=== PATIENT | female | born 1980 | race American Indian/Alaskan Native ===

== ENCOUNTER 2020-11-20 16:44 | Emergency (ER) | payer MEDICAID ==
[2020-11-20] MEDS ORDERED: Acetaminophen/HYDROcodone 325-10 MG Tab PO ONE ×2 (16:45→17:15)
--- NOTE | 2020-11-20 17:14 | CR ---
PROCEDURE INFORMATION: Exam: XR Left Ankle Exam date and time: 11/20/2020 5:00 PM Age: 40 years old Clinical indication: Other: Pain; Additional info: Left ankle injury. TECHNIQUE: Imaging protocol: XR Left ankle. Views: 3 or more views. COMPARISON: No relevant prior studies available. FINDINGS: Bones/joints: An obliquely oriented fracture of the distal fibula is identified. The tibia appears to be intact. No additional fractures are present. Ankle mortise is intact. Soft tissues: Normal. IMPRESSION: Obliquely oriented distal fibular fracture compatible with a Lehman type A injury.
[2020-11-20] MEDS ORDERED: Acetaminophen/HYDROcodone 325-10 MG Tab ONE (17:28)
--- NOTE | 2020-11-20 17:32 | EDM.PDOC ---
Scribed by Jaleesa Keyes 11/20/20 1730 for Burke Becerra MD ED HPI GENERAL MEDICAL PROBLEM - General Chief Complaint: Lower Extremity Injury/Pain Stated Complaint: slipped down some stepps on ice left ankle Time Seen by Provider: 11/20/20 16:52 Source of Information: Reports: Patient, RN, RN Notes Reviewed History Limitations: Reports: No Limitations - History of Present Illness INITIAL COMMENTS - FREE TEXT/NARRATIVE: Patient presents to ED by POV stating that 3 days ago she was at her sister's and missed a step injuring her left ankle. The pain is constant 7/10 sharp and most prominent on the lateral ankle. She has been walking on it. No other injuries. Denies loc, meds, allergies, drugs, etoh. Onset: Other (3 days ago) Onset Date: 11/17/20 Duration: Day(s):, Getting Worse Location: Reports: Lower Extremity, Left Quality: Reports: Ache, Sharp Improves with: Reports: None Worsens with: Reports: None Associated Symptoms: Reports: No Other Symptoms - Related Data Allergies Allergy/AdvReac Type Severity Reaction Status Date / Time No Known Allergies Allergy Verified 03/04/16 01:35 Home Meds: Home Meds Ibuprofen 800 mg PO Q6HR PRN 03/10/14 [History] SUMAtriptan [Imitrex] 1 tab PO ASDIRECTED PRN 12/08/14 [History] Meloxicam 7.5 mg PO BID 12/25/15 [History] Past Medical History HEENT History: Reports: Impaired Vision, Other (See Below) Other HEENT History: wears glasses Cardiovascular History: Reports: None Respiratory History: Reports: None Gastrointestinal History: Reports: None Genitourinary History: Reports: None [employer] INSPECTOR History: Reports: None Neurological History: Reports: None Psychiatric History: Reports: None Endocrine/Metabolic History: Reports: None Hematologic History: Reports: None Immunologic History: Reports: None Oncologic (Cancer) History: Reports: None Dermatologic History: Reports: None - Past Surgical History Female Surgical History: Reports: Tubal Ligation Musculoskeletal Surgical History: Reports: Other (See Below) Social & Family History - Family History Family Medical History: No Pertinent Family History - Living Situation & Occupation Living situation: Reports: with Family Occupation: Employed Review of Systems - Review of Systems Review Of Systems: Comprehensive ROS is negative, except as noted in HPI. ED EXAM, GENERAL - Physical Exam Exam: See Below Exam Limited By: No Limitations General Appearance: Alert, WD/WN, No Apparent Distress Head: Atraumatic, Normocephalic Neck: Normal Inspection Respiratory/Chest: No Respiratory Distress Cardiovascular: Normal Peripheral Pulses Back Exam: Normal Inspection Extremities: Normal Capillary Refill, Joint Swelling (left lateral ankle with contusion extending to distal dorsum of foot) Neurological: Alert, Oriented, No Motor/Sensory Deficits Psychiatric: Normal Mood Skin Exam: Warm, Dry, Intact Course - Orders/Labs/Meds Orders: Active Orders 24 hr Category Date Time Status DME for Discharge [COMM] Routine Oth 11/20/20 17:16 Ordered Meds: Medications Discontinued Medications Generic Name Dose Route Start Last Admin Trade Name Freq PRN Reason Stop Dose Admin Hydrocodone Bitart/Acetaminophen 1 tab 11/20/20 17:15 [place] 325-10 Mg PO 11/20/20 17:16 ONETIME ONE Hydrocodone Bitart/Acetaminophen Confirm 11/20/20 17:28 [place] 325-10 Mg Administered 11/20/20 17:29 Dose 3 tab .ROUTE .STK-MED ONE Departure - Departure Time of Disposition: 17:18 Disposition: Home, Self-Care 01 Condition: Fair Clinical Impression: Fracture, ankle Qualifiers: Encounter type: initial encounter Fracture type: closed Laterality: left Qualified Code(s): S82.892A - Other fracture of left lower leg, initial encounter for closed fracture - Discharge Information *PRESCRIPTION DRUG MONITORING PROGRAM REVIEWED*: No *COPY OF PRESCRIPTION DRUG MONITORING REPORT IN PATIENT YULIA: No Instructions: Ankle Fracture Forms: ED Department Discharge Additional Instructions: Call Luis Robert DPM cash applications analyst [phone] to follow up with ankle fracture. Rest injured ankle and ice and elevate to reduce swelling and pain. Take Prescription as directed. - My Orders Last 24 Hours: My Active Orders 11/20/20 17:16 DME for Discharge [COMM] Routine - Assessment/Plan Last 24 Hours: My Active Orders 11/20/20 17:16 DME for Discharge [COMM] Routine I have read and agree with the documentation that has been completed regarding this visit. By signing this record, I attest that the documentation was completed in my physical presence and is an accurate record of the encounter.
[2020-11-20 17:38] VITALS: BP 110/75; PULSE 76
== END 2020-11-20 17:40 | disposition home or self-care (01) ==
LOC: DL.ED 16:44
DX: S82.832A Other fracture of upper and lower end of left fibula, initial encounter for closed fracture (principal); Z79.899 Other long term (current) drug therapy; W10.9XXA Fall (on) (from) unspecified stairs and steps, initial encounter
CPT/HCPCS: 73610-LT; 99283-25; 99284; A9270-GY